=== PATIENT | male | born 1955 | race Caucasian/White ===

== ENCOUNTER 2019-01-11 09:43 | Outpatient (CLI) | payer BC ==
--- NOTE | 2019-01-11 11:54 | RAD ---
LEFT KNEE 4 VIEWS: Date: 01/11/19 PROVIDED CLINICAL HISTORY: Acute pain. FINDINGS: No evidence for fracture or other acute osseous abnormality. There is suspected moderate knee joint c apsular distention, somewhat limited due to obliquity of the lateral view. Alignment appears anatomic . Joint spaces appear preserved. IMPRESSION: 1. No evidence for an acute osseous abnormality. If there is persistent clinical concern, conservati ve management and follow-up imaging are advised. 2. Knee joint capsular distention is suspected, which may reflect effusion. POS: OFF
== END 2019-01-11 09:44 | disposition home or self-care (01) ==
LOC: SCSRAD 09:43
PROVIDERS: ATTEND Family Medicine
DX: M25.562 Pain in left knee (principal)